=== PATIENT | female | born 1975 | race Caucasian/White ===

== ENCOUNTER → 2021-07-05 | Outpatient (CLI) | payer OTHER ==
--- NOTE | 2021-07-05 08:25 | RAD ---
EXAM: Bilateral lower extremity venous Doppler sonogram; bilateral lower extremity venous reflux sono gram. HISTORY: Pain and swelling. TECHNIQUE: Thompson scale and color Doppler sonographic evaluation of the bilateral lower extremity veins with spectral waveform analysis was performed. FINDINGS: There is normal color flow, normal compressibility and there are normal spectral waveforms in the common femoral, superficial femoral, popliteal, posterior tibial and greater saphenous veins. The right greater saphenous vein measures 6.9 mm at the saphenofemoral junction and demonstrates no r eflux. The left greater saphenous vein measures 8.3 mm at the saphenofemoral junction and demonstrate s no reflux. The lesser saphenous veins demonstrate no reflux. IMPRESSION: 1. No Doppler evidence of lower extremity deep venous thrombosis. 2. No evidence of reflux involving the greater saphenous or lesser saphenous veins. Electronically signed by: Yolanda Tello MD (07/05/2021 8:23 AM) [id number]
== END ==
LOC: US 07:30
PROVIDERS: ATTEND Internal Medicine
DX: R60.0 Localized edema (principal)
CPT/HCPCS: 93970